=== PATIENT | female | born 2000 | race Caucasian/White ===

== ENCOUNTER 2023-02-02 13:31 | Emergency (ER) | payer BC ==
[2023-02-02 13:47] VITALS: BP 115/51; PULSE 63; RESP 18; TEMP 98.7; BMI 26.4
== END 2023-02-02 15:50 | disposition home or self-care (01) ==
LOC: JERFT 13:31
DX: R07.81 Pleurodynia (principal); S22.31XA Fracture of one rib, right side, initial encounter for closed fracture; W18.40XA Slipping, tripping and stumbling without falling, unspecified, initial encounter; W22.8XXA Striking against or struck by other objects, initial encounter; Y93.02 Activity, running
CPT/HCPCS: 71046-TC-FY; 71101-TC-RT-FY; 99283-25